=== PATIENT | female | born 1975 | race Caucasian/White ===

== ENCOUNTER 2021-04-26 14:31 | Emergency (ER) | payer MEDICAID ==
[~2021-04-26] VITALS: Ht 152.4 cm; Wt 104.3 kg
[~2021-04-26 14:31] MED LIST: ACET-789 PO; BCP PO; BUSP10TA95 PO; BUSP5TAB59 PO; CIPR-225 PO; DICL75TA2 PO; DOCU100C37 PO; HCT25T PO; HYDR-34 PO; HYDR-3729 PO; IBUP-1773 PO; LISI10TA25 PO; LISI1TAB6 PO; MEDR5TAB4 PO; MELO-195 PO; MELO7.5T46 PO; MUPI22OI2 TOP; OMEP20CA6 PO; PHEN-640 PO; RABE20TA PO; RT-ALBUINH IH; SERT100T PO; SULF1TAB35 PO; TRM50T PO
[2021-04-26 15:24] LABS: BASOPHILS # (AUTO) 0.1 10^3/uL (0.0-0.1); BASOPHILS % (AUTO) 1 % (0-10); EOSINOPHILS # (AUTO) 0.6 10^3/uL (0.0-0.3); EOSINOPHILS % (AUTO) 6 % (0-10); HEMATOCRIT 42 % (35-52); HEMOGLOBIN 13.9 g/dL (11.5-16.0); LYMPHOCYTES # (AUTO) 3.7 10^3/uL (1.0-4.0); LYMPHOCYTES % (AUTO) 39 % (12-44); MEAN CORPUSCULAR HEMOGLOBIN 31 pg (25-34); MEAN CORPUSCULAR HGB CONC 33 g/dL (32-36); MEAN CORPUSCULAR VOLUME 95 fL (80-99); MEAN PLATELET VOLUME 11.7 fL (9.0-12.2); MONOCYTES # (AUTO) 0.8 10^3/uL (0.0-1.0); MONOCYTES % (AUTO) 8 % (0-12); NEUTROPHILS # (AUTO) 4.3 10^3/uL (1.8-7.8); NEUTROPHILS % (AUTO) 45 % (42-75); PLATELET COUNT 206 10^3/uL (130-400); WHITE BLOOD COUNT 9.5 10^3/uL (4.3-11.0)
[2021-04-26 15:27] LABS: CALCIUM 9.8 MG/DL (8.5-10.1)
[2021-04-26 15:28] LABS: TOTAL PROTEIN 7.9 GM/DL (6.4-8.2)
[2021-04-26 15:30] LABS: BILIRUBIN,TOTAL 0.5 MG/DL (0.1-1.0)
[2021-04-26] MEDS ORDERED: ONDANSETRON 4 MG/2 ML (SDV) Z0FRAN IVP ONE (15:30)
[2021-04-26] MEDS ORDERED: LACTATED RINGERS 1,000 ML IV ONE ×2 (15:30→16:30)
[2021-04-26] MEDS ORDERED: NS IV 1000 ML 1,000 ML IV SCH (15:30)
[2021-04-26 15:32] LABS: CREATININE SERUM 1.35 MG/DL (0.60-1.30)
[2021-04-26 15:35] LABS: MAGNESIUM 2.4 MG/DL (1.6-2.4)
[2021-04-26] MEDS ORDERED: ONDA4TAB11 SL (16:29)
[2021-04-26] MEDS ORDERED: HYOS0.1283 SL (16:29)
--- NOTE | 2021-04-26 16:29 | ED GI ---
General Chief Complaint: Abdominal/GI Problems Stated Complaint: HEADACHE V/D DRY MOUTH Nursing Triage Note: PT ARRIVED BY PRIVATE VEHICLE WITH WITH CHEIF COMPLAINT OF NAUSEA, DIARRHEA, HEADACHE AND DRY MOUTH. PT IS ALERT, ORIENTED X 4 AND AMBULATORY. PT STATED ONSET WAS ONE WEEK AGO AND THOUGHT IT WAS A STOMACH BUG, OR FOOD POISONING FROM FISH, BUT IT HAS BEEN 1 WEEK AND 1 DAY SINCE ONSET. PT IS NOT GETTING BETTER. COVID SWAB WAS DONE, VITALS AND IV WITH BLOOD DRAW. PT IS ALLERGIC TO LATEX AND TRAMADOL. PT DENIES SMOKING, ALCOHOL OR DRUG USE. REPORT WAS GIVEN TO PROVIDER. Source of Information: Patient Exam Limitations: No Limitations History of Present Illness Date Seen by Provider: Apr 26, 2021 Time Seen by Provider: 15:16 Initial Comments History as above. Patient also complains of some crampy abdominal pain. She feels dry. She is afebrile. Allergies and Home Medications Allergies Coded Allergies: tramadol (Verified Allergy, Unknown, HIVES AND VOMITING, 07/25/15) Home Medications Buspirone HCl 10 Mg Tablet, 10 MG PO TID, (Reported) Hydrochlorothiazide 25 Mg Tab, 25 MG PO DAILY, (Reported) Hydrocodone/Acetaminophen 1 Each Tablet, 1 EACH PO Q4H Prescribed by: RON BETANCOURT on 07/07/16 1254 Hyoscyamine Sulfate 0.125 Mg Tab.subl, 0.125 MG SL Q4H PRN for CRAMPS Prescribed by: TEVIN RINCON on 04/26/21 1629 Ibuprofen 600 Mg Tablet, 600 MG PO Q6H PRN for PAIN Prescribed by: RON BETANCOURT on 07/07/16 1254 Lisinopril 10 Mg Tablet, 10 MG PO DAILY, (Reported) Medroxyprogesterone Acetate 5 Mg Tablet, 5 MG PO DAILY Prescribed by: RON BETANCOURT on 07/07/16 1254 Omeprazole 20 Mg Capsule.dr, 20 MG PO DAILY, (Reported) Ondansetron 4 Mg Tab.rapdis, 4 MG SL Q4H PRN for NAUSEA/VOMITING Prescribed by: TEVIN RINCON on 04/26/21 1629 Sertraline HCl 100 Mg Tablet, 100 MG PO BID, (Reported) Patient Home Medication List Home Medication List Reviewed: Yes Review of Systems Review of Systems Constitutional: no symptoms reported EENTM: No Symptoms Reported Respiratory: No Symptoms Reported Cardiovascular: No Symptoms Reported Gastrointestinal: See HPI Genitourinary: No Symptoms Reported Musculoskeletal: no symptoms reported Skin: no symptoms reported Psychiatric/Neurological: See HPI Endocrine: No Symptoms Reported Hematologic/Lymphatic: No Symptoms Reported Past Wyuqlmm-Wgawjd-Hhqozd Hx Patient Social History Tobacco Use?: No Substance use?: No Alcohol Use?: No Pt feels they are or have been: No Immunizations Up To Date Tetanus Booster (TDap): Unknown Past Medical History Surgeries: Yes Section, Gallbladder, Hysterectomy Respiratory: Yes Asthma Cardiac: Yes Hypertension Reproductive Disorders: Yes (PELVIC PAIN) Female Reproductive Disorders: Ovarian Cyst [employer] History: Hysterectomy, Tubal Ligation Sexually Transmitted Disease: No HIV/AIDS: No Genitourinary: Yes UTI-Chronic Gastrointestinal: Yes Gastroesophageal Reflux Musculoskeletal: Yes Arthritis, Chronic Back Pain Diabetes, Non-Insulin dep Loss of Vision: Bilateral Hearing Impairment: Denies Psychosocial: Yes Anxiety Adverse Reaction/Blood Tranf: No Family Medical History Alcoholism 19 FATHER Cataracts 19 MOTHER Diabetes mellitus 19 FATHER Drug abuse G8 SISTER FH: breast cancer 19 MOTHER Hypertension 19 FATHER 19 MOTHER Cancer, Hypertension Physical Exam Vital Signs Vital Signs - First Documented 04/26/21 15:13 Temp 36.1 Pulse 81 Resp 16 B/P (MAP) 125/81 (96) Pulse Ox 97 O2 Delivery Room Air Capillary Refill : Less Than 3 Seconds Height/Weight/BMI Height: 5'2.00" Weight: 189lbs. 0.0oz. 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, no motor/sensory deficits, alert, normal mood/affect, oriented x 3 Skin: normal color, warm/dry Progress/Results/Core Measures Results/Orders Lab Results Laboratory Tests Test 04/26/21 14:55 Range/Units White Blood Count 9.5 4.3-11.0 10^3/uL Red Blood Count 4.43 3.80-5.11 10^6/uL Hemoglobin 13.9 11.5-16.0 g/dL Hematocrit 42 35-52 % Mean Corpuscular Volume 95 80-99 fL Mean Corpuscular Hemoglobin 31 25-34 pg Mean Corpuscular Hemoglobin Concent 33 32-36 g/dL Red Cell Distribution Width 12.7 10.0-14.5 % Platelet Count 206 130-400 10^3/uL Mean Platelet Volume 11.7 9.0-12.2 fL Immature Granulocyte % (Auto) 0 % Neutrophils (%) (Auto) 45 42-75 % Lymphocytes (%) (Auto) 39 12-44 % Monocytes (%) (Auto) 8 0-12 % Eosinophils (%) (Auto) 6 0-10 % Basophils (%) (Auto) 1 0-10 % Neutrophils # (Auto) 4.3 1.8-7.8 10^3/uL Lymphocytes # (Auto) 3.7 1.0-4.0 10^3/uL Monocytes # (Auto) 0.8 0.0-1.0 10^3/uL Eosinophils # (Auto) 0.6 H 0.0-0.3 10^3/uL Basophils # (Auto) 0.1 0.0-0.1 10^3/uL Immature Granulocyte # (Auto) 0.0 0.0-0.1 10^3/uL Sodium Level 141 135-145 MMOL/L Potassium Level 4.0 3.6-5.0 MMOL/L Chloride Level 109 H 98-107 MMOL/L Carbon Dioxide Level 20 L 21-32 MMOL/L Anion Gap 12 5-14 MMOL/L Blood Urea Nitrogen 12 7-18 MG/DL Creatinine 1.35 H 0.60-1.30 MG/DL Estimat Glomerular Filtration Rate 42 BUN/Creatinine Ratio 9 Glucose Level 113 H 70-105 MG/DL Calcium Level 9.8 8.5-10.1 MG/DL Corrected Calcium 9.8 8.5-10.1 MG/DL Magnesium Level 2.4 1.6-2.4 MG/DL Total Bilirubin 0.5 0.1-1.0 MG/DL Aspartate Amino Transf (AST/SGOT) 35 H 5-34 U/L Alanine Aminotransferase (ALT/SGPT) 56 H 0-55 U/L Alkaline Phosphatase 95 40-136 U/L Total Protein 7.9 6.4-8.2 GM/DL Albumin 4.0 3.2-4.5 GM/DL Influenza Type A (RT-PCR) Not Detected Not Detecte Influenza Type B (RT-PCR) Not Detected Not Detecte SARS-CoV-2 RNA (RT-PCR) Not Detected Not Detecte My Orders Orders - TEVIN PADILLA MD Iv 1000 Ml (Sodium Chloride 0.9%) (04/26/21 15:30) Cbc With Automated Diff (04/26/21 15:16) Comprehensive Metabolic Panel (04/26/21 15:16) Magnesium (04/26/21 15:16) Ed Iv/Invasive Line Start (04/26/21 15:16) Covid 19 Inhouse Test (04/26/21 15:16) Influenza A And B By Pcr (04/26/21 15:16) Ondansetron Injection (Zofran Injectio (04/26/21 15:30) Lactated Ringers (Lr 1000 Ml Iv Solution (04/26/21 15:30) Lactated Ringers (Lr 1000 Ml Iv Solution (04/26/21 16:30) Hyoscyamine Sl Tablet (Levsin Sl Tablet) (04/26/21 16:30) Medications Given in ED Vital Signs/I&O 04/26/21 04/26/21 15:13 18:12 Temp 36.1 Pulse 81 75 Resp 16 18 B/P (MAP) 125/81 (96) 143/91 Pulse Ox 97 98 O2 Delivery Room Air Room Air Blood Pressure Mean: 96 Progress Progress Note : Progress Note This is a mild bump in creatinine, labs appeared unremarkable. Patient was hydrated with 2 L of IV fluid. She is additionally treated with Zofran and Levsin with improvement in her symptoms. Prescriptions were provided. Departure Impression Primary Impression: Nausea vomiting and diarrhea Additional Impressions: Abdominal cramping Renal insufficiency Disposition: 01 HOME, SELF-CARE Condition: Improved Departure-Patient Inst. Decision time for Depature: 16:27 Referrals: [facility] (PCP/Family) Primary Care Physician Patient Instructions: Viral Gastroenteritis, Adult (DC) Add. Discharge Instructions: Drink plenty of clear liquids. Gradually advance your diet with small quantities of bland food as tolerated. Avoid milk products or fatty or greasy foods until your symptoms have resolved for couple of days. Use the Zofran (ondansetron) as prescribed for nausea vomiting. Use the Levsin (hyoscyamine) as prescribed for diarrhea and cramping. Call with questions or concerns. Return to the ER if you have worsening symptoms. All discharge instructions reviewed with patient and/or family. Voiced understanding. Scripts Ondansetron (Ondansetron Odt) 4 Mg Tab.rapdis 4 MG SL Q4H PRN for NAUSEA/VOMITING, #10 TAB Prov: TEVIN PADILLA MD 04/26/21 Hyoscyamine Sulfate (Levsin-Sl) 0.125 Mg Tab.subl 0.125 MG SL Q4H PRN for CRAMPS, #10 TAB 0 Refills Prov: TEVIN PADILLA MD 04/26/21 Copy Copies To 1: PADMA COOK JOSHUA T MD Apr 26, 2021 16:29
[2021-04-26] MEDS ORDERED: HYOSCYAMINE 0.125 MG (LEVSIN) TAB SL ONE (16:30)
[2021-04-26 18:12] VITALS: BP 143/91
== END 2021-04-26 18:12 | disposition home or self-care (01) ==
LOC: EDUNIT# 14:31 → ER 14:33
DX: R11.10 Vomiting, unspecified (principal); R19.7 Diarrhea, unspecified; R10.9 Unspecified abdominal pain; N28.9 Disorder of kidney and ureter, unspecified; I10 Essential (primary) hypertension; J45.909 Unspecified asthma, uncomplicated; K21.9 Gastro-esophageal reflux disease without esophagitis; G89.29 Other chronic pain; M54.9 Dorsalgia, unspecified; E11.9 Type 2 diabetes mellitus without complications; F41.9 Anxiety disorder, unspecified; Z20.822 Contact with and (suspected) exposure to COVID-19; Z79.899 Other long term (current) drug therapy; Z79.891 Long term (current) use of opiate analgesic
CPT/HCPCS: 36415; 80053; 83735; 85025; 87636

== ENCOUNTER 2022-03-03 11:58 | Emergency (ER) | payer MEDICAID ==
[~2022-03-03] VITALS: Ht 152 cm; Wt 104.0 kg
[~2022-03-03 11:58] MED LIST changes: +HYOS0.1283 SL; +ONDA4TAB11 SL; -SULF1TAB35 PO; +SULF1TAB38 PO
[2022-03-03] MEDS ORDERED: fentaNYL INJ 100 MCG/2 ML AMP IVP STA (12:14)
--- NOTE | 2022-03-03 12:18 | ED Abdominal Pain ---
General Stated Complaint: RLQ PAIN Source of Information: Patient Exam Limitations: No Limitations History of Present Illness Date Seen by Provider: March 03, 2022 Time Seen by Provider: 12:16 Initial Comments Patient is a 46-year-old female who presents ED with right lower quadrant abdominal pain. Sharp stabbing pain for the past month. This pain is constant. Rates pain 9 out of 10. Radiation to her upper abdomen and right lower back. She states she is seeing a provider at the walk-in clinic as well as an ER with concern for kidney stone. Was given pain medication without much improvement. Denies of any dark urine, pain with urination, vaginal bleeding. History of total hysterectomy. Denies fever, nausea, vomiting, diarrhea, chest pain, shortness of breath, cough, headache, dizziness. Allergies and Home Medications Allergies Coded Allergies: tramadol (Verified Allergy, Unknown, HIVES AND VOMITING, 07/25/15) Patient Home Medication List Home Medication List Reviewed: Yes Buspirone HCl (Buspirone HCl) 10 Mg Tablet, 10 MG PO TID, (Reported) Entered as Reported by: PATT HAMPTON on 07/06/16 0955 Hydrochlorothiazide (Hctz) 25 Mg Tab, 25 MG PO DAILY, (Reported) Entered as Reported by: SALOMÓN BRIDGES on 11/08/12 1902 Hydrocodone/Acetaminophen (Lortab 5-325 mg Tablet) 1 Each Tablet, 1 EACH PO Q4H Prescribed by: RON BETANCOURT on 07/07/16 1254 Hydrocodone/Acetaminophen (Hydrocodone-Acetamin 5-325 mg) 5 Mg-325 Mg Tablet, 1 TAB PO Q4H PRN for PAIN-MODERATE (5-7) Prescribed by: RICCO CORTES on 03/03/22 1416 Hyoscyamine Sulfate (Levsin-Sl) 0.125 Mg Tab.subl, 0.125 MG SL Q4H PRN for CRAMPS Prescribed by: TEVIN RINCON on 04/26/21 1629 Ibuprofen (Ibuprofen) 600 Mg Tablet, 600 MG PO Q6H PRN for PAIN Prescribed by: RON BETANCOURT on 07/07/16 1254 Lisinopril (Lisinopril) 10 Mg Tablet, 10 MG PO DAILY, (Reported) Entered as Reported by: BORA BAER on 07/25/15 1237 Medroxyprogesterone Acetate (Medroxyprogesterone Acetate) 5 Mg Tablet, 5 MG PO DAILY Prescribed by: RON BETANCOURT on 07/07/16 1254 Omeprazole (Prilosec) 20 Mg Capsule.dr, 20 MG PO DAILY, (Reported) Entered as Reported by: JONATHAN MENJIVAR on 07/30/15 0840 Ondansetron (Ondansetron Odt) 4 Mg Tab.rapdis, 4 MG SL Q4H PRN for NAUSEA/VOM ITING Prescribed by: TEVIN RINCON on 04/26/21 1629 Sertraline HCl (Zoloft) 100 Mg Tablet, 100 MG PO BID, (Reported) Entered as Reported by: BORA BAER on 10/03/15 1329 Review of Systems Review of Systems Constitutional: No chills, No diaphoresis, No malaise, No weakness EENTM: No Double Vision, No Eye Pain Respiratory: Denies Cough, Denies Orthopnea, Denies Shortness of Air Cardiovascular: Denies Chest Pain, Denies Edema Gastrointestinal: Abdominal Pain; Denies Constipated, Denies Diarrhea, Denies Nausea Genitourinary: Denies Burning, Denies Discharge Musculoskeletal: No back pain, No joint pain, No joint swelling, No muscle pain Skin: No change in color, No change in hair/nails All Other Systems Reviewed Negative Unless Noted: Yes Past Cikdziw-Kntocr-Bdaurs Hx Immunizations Up To Date Tetanus Booster (TDap): Unknown Past Medical History Surgeries: Yes Section, Gallbladder, Hysterectomy Respiratory: Yes Asthma Cardiac: Yes Hypertension Reproductive Disorders: Yes (PELVIC PAIN) Female Reproductive Disorders: Ovarian Cyst [employer] History: Hysterectomy, Tubal Ligation Sexually Transmitted Disease: No HIV/AIDS: No Genitourinary: Yes UTI-Chronic Gastrointestinal: Yes Gastroesophageal Reflux Musculoskeletal: Yes Arthritis, Chronic Back Pain Diabetes, Non-Insulin dep Loss of Vision: Bilateral Hearing Impairment: Denies Psychosocial: Yes Anxiety Adverse Reaction/Blood Tranf: No Family Medical History Alcoholism 19 FATHER Cataracts 19 MOTHER Diabetes mellitus 19 FATHER Drug abuse G8 SISTER FH: breast cancer 19 MOTHER Hypertension 19 FATHER 19 MOTHER Cancer, Hypertension Physical Exam Vital Signs Vital Signs - First Documented 03/03/22 12:11 Temp 36.3 Pulse 115 Resp 16 B/P (MAP) 107/79 (88) Pulse Ox 97 O2 Delivery Room Air Capillary Refill : Height/Weight/BMI Height: 5'2.00" Weight: 189lbs. 0.0oz. 85.694351xx; 44.00 BMI Method:Stated General Appearance: WD/WN, no apparent distress HEENT: PERRL/EOMI, normal ENT inspection, TMs normal, pharynx normal Neck: non-tender, full range of motion, supple Respiratory: chest non-tender, lungs clear, normal breath sounds, no respiratory distress Cardiovascular: regular rate, rhythm, no edema, no gallop, no JVD Gastrointestinal: normal bowel sounds, soft, no organomegaly, tenderness (Right lower quadrant tenderness, right lower back tenderness. Normal bowel sounds throughout. 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, no motor/sensory deficits, alert, normal mood/affect, oriented x 3 Progress/Results/Core Measures Results/Orders Lab Results Laboratory Tests Test 03/03/22 12:29 03/03/22 12:32 Range/Units White Blood Count 9.8 4.3-11.0 10^3/uL Red Blood Count 4.39 3.80-5.11 10^6/uL Hemoglobin 13.4 11.5-16.0 g/dL Hematocrit 40 35-52 % Mean Corpuscular Volume 92 80-99 fL Mean Corpuscular Hemoglobin 31 25-34 pg Mean Corpuscular Hemoglobin Concent 33 32-36 g/dL Red Cell Distribution Width 12.1 10.0-14.5 % Platelet Count 225 130-400 10^3/uL Mean Platelet Volume 10.2 9.0-12.2 fL Immature Granulocyte % (Auto) 0 % Neutrophils (%) (Auto) 52 42-75 % Lymphocytes (%) (Auto) 35 12-44 % Monocytes (%) (Auto) 8 0-12 % Eosinophils (%) (Auto) 4 0-10 % Basophils (%) (Auto) 1 0-10 % Neutrophils # (Auto) 5.0 1.8-7.8 10^3/uL Lymphocytes # (Auto) 3.5 1.0-4.0 10^3/uL Monocytes # (Auto) 0.8 0.0-1.0 10^3/uL Eosinophils # (Auto) 0.4 H 0.0-0.3 10^3/uL Basophils # (Auto) 0.1 0.0-0.1 10^3/uL Immature Granulocyte # (Auto) 0.0 0.0-0.1 10^3/uL Sodium Level 139 135-145 MMOL/L Potassium Level 3.7 3.6-5.0 MMOL/L Chloride Level 107 98-107 MMOL/L Carbon Dioxide Level 22 21-32 MMOL/L Anion Gap 10 5-14 MMOL/L Blood Urea Nitrogen 20 H 7-18 MG/DL Creatinine 1.04 0.60-1.30 MG/DL Estimat Glomerular Filtration Rate 67 BUN/Creatinine Ratio 19 Glucose Level 148 H 70-105 MG/DL Calcium Level 9.3 8.5-10.1 MG/DL Corrected Calcium 9.4 8.5-10.1 MG/DL Total Bilirubin 0.4 0.1-1.0 MG/DL Aspartate Amino Transf (AST/SGOT) 23 5-34 U/L Alanine Aminotransferase (ALT/SGPT) 35 0-55 U/L Alkaline Phosphatase 88 40-136 U/L Total Protein 7.2 6.4-8.2 GM/DL Albumin 3.9 3.2-4.5 GM/DL Lipase 10 8-78 U/L Urine Color YELLOW Urine Clarity CLEAR Urine pH 6.0 5-9 Urine Specific [place] 1.025 H 1.016-1.022 Urine Protein NEGATIVE NEGATIVE Urine Glucose (UA) NEGATIVE NEGATIVE Urine Ketones NEGATIVE NEGATIVE Urine Nitrite NEGATIVE NEGATIVE Urine Bilirubin NEGATIVE NEGATIVE Urine Urobilinogen 0.2 < = 1.0 MG/DL Urine Leukocyte Esterase TRACE H NEGATIVE Urine RBC (Auto) TRACE-I H NEGATIVE Urine RBC NONE /HPF Urine WBC RARE /HPF Urine Squamous Epithelial Cells 5-10 /HPF Urine Crystals NONE /LPF Urine Bacteria FEW H /HPF Urine Casts NONE /LPF Urine Mucus NEGATIVE /LPF Urine Culture Indicated NO Urine Test NEGATIVE NEGATIVE My Orders Orders - FLORENCIO PIEDRA Ua Culture If Indicated (03/03/22 11:59) Hcg,Qualitative Urine (03/03/22 11:59) Cbc With Automated Diff (03/03/22 12:14) Comprehensive Metabolic Panel (03/03/22 12:14) Lipase (03/03/22 12:14) Ct Abdomen/Pelvis W (03/03/22 12:14) Fentanyl Inj (Sublimaze Injection) (03/03/22 12:14) Iohexol Injection (Omnipaque 350 Mg/Ml 1 (03/03/22 13:15) Received Contrast (Hold Metformin- Contr (03/03/22 13:15) Sodium Chloride Flush (Catheter Flush Sy (03/03/22 13:15) Ns (Ivpb) (Sodium Chloride 0.9% Ivpb Bag (03/03/22 13:15) Medications Given in ED Current Medications Medications Dose Ordered Sig/Ciro Route Start Time Stop Time Status Last Admin Dose Admin Iohexol 100 ml ONCE ONCE IV 03/03/22 13:15 03/03/22 13:16 DC 03/03/22 13:27 100 ML Sodium Chloride 10 ml NEEDED PRN IV 03/03/22 13:15 03/03/22 14:25 DC 03/03/22 13:27 10 ML Sodium Chloride 100 ml ONCE ONCE IV 03/03/22 13:15 03/03/22 13:16 DC 03/03/22 13:27 80 ML Vital Signs/I&O 03/03/22 03/03/22 12:11 14:25 Temp 36.3 Pulse 115 88 Resp 16 16 B/P (MAP) 107/79 (88) 123/90 Pulse Ox 97 97 O2 Delivery Room Air Room Air Departure Communication (PCP) Patient with ongoing constant pain for the past month. Vital signs stable. Reports pain 9 out of 10. Was given a dose of fentanyl with improvement of pain. No improvement Tylenol ibuprofen at home. Urinalysis without evidence infection. History total hysterectomy. No vaginal bleeding. No history of appendectomy, cholecystectomy. No severe pain with eating or with movement. This is a constant pain. Radiating to right flank. Patient lab work was otherwise unremarkable. Normal liver enzymes, pancreatic is enzymes, white blood count, kidney function. CT Abdo pelvis shows cholelithiasis without evidence of cholecystitis. She has no right upper quadrant pain. Negative appendix. Possible liver cyst versus hemangioma. Recommend outpatient MRI for further evaluation. No evidence of surgical abdomen at this time. Recommend outpatient follow-up for this continuous pain for the past month. Did provide surgical follow-up if surgical indication. Likely would benefit follow-up with PCP for further evaluation. Return precautions were discussed with patient. Will be discharged few days worth of pain medication as needed. Discussed laxatives with pain medication. Impression Primary Impression: Abdominal pain Disposition: HOME, SELF-CARE Condition: Stable Departure-Patient Inst. Decision time for Depature: 14:15 Referrals: CLEMENCIA LARSON LUKE M DO (PCP) Primary Care Physician Patient Instructions: Abdominal Pain, Adult ED Scripts Hydrocodone/Acetaminophen (Hydrocodone-Acetamin 5-325 mg) 5 Mg-325 Mg Tablet 1 TAB PO Q4H PRN for PAIN-MODERATE (5-7), #12 TAB Prov: FLORENCIO PIEDRA 03/03/22 FLORENCIO PIEDRA March 03, 2022 12:18
[2022-03-03 12:39] LABS: BASOPHILS # (AUTO) 0.1 10^3/uL (0.0-0.1); BASOPHILS % (AUTO) 1 % (0-10); EOSINOPHILS # (AUTO) 0.4 10^3/uL (0.0-0.3); EOSINOPHILS % (AUTO) 4 % (0-10); HEMATOCRIT 40 % (35-52); HEMOGLOBIN 13.4 g/dL (11.5-16.0); LYMPHOCYTES # (AUTO) 3.5 10^3/uL (1.0-4.0); LYMPHOCYTES % (AUTO) 35 % (12-44); MEAN CORPUSCULAR HEMOGLOBIN 31 pg (25-34); MEAN CORPUSCULAR HGB CONC 33 g/dL (32-36); MEAN CORPUSCULAR VOLUME 92 fL (80-99); MEAN PLATELET VOLUME 10.2 fL (9.0-12.2); MONOCYTES # (AUTO) 0.8 10^3/uL (0.0-1.0); MONOCYTES % (AUTO) 8 % (0-12); NEUTROPHILS % (AUTO) 52 % (42-75); PLATELET COUNT 225 10^3/uL (130-400); WHITE BLOOD COUNT 9.8 10^3/uL (4.3-11.0)
[2022-03-03 12:40] LABS: BILIRUBIN,URINE NEGATIVE (NEGATIVE); CLARITY,URINE CLEAR; COLOR,URINE YELLOW; GLUCOSE, URINE (UA) NEGATIVE (NEGATIVE); KETONES,URINE NEGATIVE (NEGATIVE); LEUKOCYTE ESTERASE ,URINE TRACE (NEGATIVE); NITRITE,URINE NEGATIVE (NEGATIVE); PROTEIN,URINE NEGATIVE (NEGATIVE)
[2022-03-03 12:46] LABS: WBC,URINE RARE /HPF
[2022-03-03 12:47] LABS: BACTERIA,URINE FEW /HPF
[2022-03-03 12:47] LABS: ALBUMIN 3.9 GM/DL (3.2-4.5); POTASSIUM 3.7 MMOL/L (3.6-5.0)
[2022-03-03 12:48] LABS: CALCIUM 9.3 MG/DL (8.5-10.1)
[2022-03-03 12:49] LABS: TOTAL PROTEIN 7.2 GM/DL (6.4-8.2)
[2022-03-03 12:51] LABS: BILIRUBIN,TOTAL 0.4 MG/DL (0.1-1.0)
[2022-03-03 12:53] LABS: CREATININE SERUM 1.04 MG/DL (0.60-1.30)
[2022-03-03] MEDS ORDERED: IOHEXOL 350 MG/ML 100 ML (OMNIPAQUE 350) VIAL IV ONE (13:15)
[2022-03-03] MEDS ORDERED: HOLD METFORMIN - RECEIVED CONTRAST 20 ML VIAL IV SCH (13:15)
[2022-03-03] MEDS ORDERED: CATHETER FLUSH 10 ML SYR IV PRN (13:15)
[2022-03-03] MEDS ORDERED: NS 100 ML (IVPB) BAG IV ONE (13:15)
--- NOTE | 2022-03-03 13:53 | Diagnostic Imaging Report ---
EXAMINATION: CT abdomen and pelvis with intravenous contrast. TECHNIQUE: Multiple contiguous axial images were obtained through the abdomen and pelvis after the uneventful administration of intravenous contrast. All CT scans use one or more of the following dose optimizing techniques: automated exposure control, MA and/or KvP adjustment based on patient size and exam type or iterative reconstruction. HISTORY: Right lower abdominal pain. COMPARISON: None available. FINDINGS: The heart is unremarkable. The included lung bases are clear. There is hepatic steatosis. Small focus of enhancement is seen in the right hepatic lobe measuring 1.2 cm. An area of decreased attenuation is seen in the right hepatic lobe measuring 3.3 cm. The portal vein is patent. Cholelithiasis is visualized without CT evidence of acute cholecystitis. Simple cortical cysts are seen in the kidneys. No evidence of hydronephrosis or solid renal mass. No renal calculi. The urinary bladder is nondistended. The spleen, pancreas, and adrenal glands have a normal appearance. There is no pathologically enlarged mesenteric or retroperitoneal adenopathy. The bowel loops are nondilated. The appendix is visualized in the right lower quadrant and has a normal appearance. There is no free fluid or free air. No acute osseous abnormalities. There is no free air, loculated collection, or adenopathy in the pelvis. IMPRESSION: 1. Cholelithiasis without CT evidence of acute cholecystitis. 2. Hepatic steatosis. An area of enhancement is visualized in the right hepatic lobe measuring 1.2 cm with a separate area of decreased attenuation in the right hepatic lobe measuring 3.3 cm. These findings may relate to hemangiomas and/or cysts. Consider liver protocol CT or MRI to further characterize on an outpatient basis. Dictated by: Dictated on workstation # [id number]
[2022-03-03] MEDS ORDERED: ACHD5005 PO (14:16)
[2022-03-03 14:25] VITALS: BP 123/90
== END 2022-03-03 14:25 | disposition home or self-care (01) ==
LOC: EDUNIT# 11:58 → ER 12:00
DX: R10.31 Right lower quadrant pain (principal); M54.50 Low back pain, unspecified; Z90.710 Acquired absence of both cervix and uterus; Z32.02 Encounter for pregnancy test, result negative
CPT/HCPCS: 36415; 74177; 80053; 81000; 83690; 84703; 85025

== ENCOUNTER → 2022-03-24 | Outpatient (CLI) | payer MEDICAID ==
[~2022-03-24] MED LIST changes: +ACHD5005 PO
--- NOTE | 2022-03-24 09:37 | Diagnostic Imaging Report ---
EXAMINATION: US Abdomen limited. TECHNIQUE: Multiple Real-time grayscale images were obtained over the right upper quadrant in various projections. REASON FOR EXAM: Epigastric pain. COMPARISON: 03/03/2022. FINDINGS: The liver is prominent and demonstrates increased echogenicity throughout. Hypoechoic lesions are seen in the right lobe with the largest measuring 4.1 x 2.9 x 2.5 cm. No intrahepatic biliary dilatation is present. The common bile duct is obscured. The main portal vein is hepatopedal. No ascites is seen in the upper abdomen. Gallstones are visualized within the gallbladder lumen. The gallbladder wall measures 0.3 cm in thickness. No pericholecystic fluid is seen. Sonographic Stone's sign is negative. The visualized portion of the head of the pancreas are within normal limits. The body and tail of the pancreas are not well visualized due to overlying bowel gas. The visualized portions of the IVC and aorta appear normal. The right kidney measures approximately 9.1 cm in length and has a normal appearance. IMPRESSION: 1. Cholelithiasis without sonographic evidence of acute cholecystitis. 2. Hepatomegaly with hepatic steatosis. Scattered areas of decreased echogenicity are seen in the right hepatic lobe which may represent areas of focal fatty infiltration or benign hemangiomas. Dictated by: Dictated on workstation # [id number]
== END ==
LOC: RAD 08:00
PROVIDERS: ATTEND Surgery
DX: K80.20 Calculus of gallbladder without cholecystitis without obstruction (principal); K76.0 Fatty (change of) liver, not elsewhere classified
CPT/HCPCS: 76705

== ENCOUNTER → 2022-03-27 | Outpatient (CLI) | payer MEDICAID ==
[~2022-03-27] MED LIST changes: +CATHETER FLUSH 10 ML SYR IVP PRN
--- NOTE | 2022-03-27 13:09 | Diagnostic Imaging Report ---
INDICATION: Epigastric pain EXAMINATION:: HIDA scan 03/27/2022 FINDINGS: After uneventful administration of 5.11 mCi of technetium 99m Choletec intravenously, subsequent imaging was performed with prompt homogeneous uptake seen throughout the liver. The gallbladder and small bowel seen within less than 60 minutes. At 50 minutes Ensure administered orally with continued imaging performed. Ejection fraction is calculated at 41.5%. IMPRESSION: 1. No obstructive process. 2. Normal ejection fraction of 41.5% Dictated by: Dictated on workstation # [id number]
== END ==
LOC: CARD 09:44
PROVIDERS: ATTEND Surgery
DX: R10.13 Epigastric pain (principal)
CPT/HCPCS: 78227

== ENCOUNTER 2022-04-08 05:53 | Outpatient (CLI) | payer MEDICAID ==
[~2022-04-08] VITALS: Ht 157.5 cm; Wt 102.3 kg
[~2022-04-08 05:53] MED LIST changes: -CATHETER FLUSH 10 ML SYR IVP PRN
[2022-04-09] MEDS ORDERED: HYDR-700 PO (13:14)
[2022-04-09] MEDS ORDERED: RIME75TA PO (13:14)
[2022-04-09] MEDS ORDERED: VENL37.52 PO (13:14)
[2022-04-09] MEDS ORDERED: METF-478 PO (13:14)
[2022-04-09] MEDS ORDERED: OXYB10TA29 PO (13:14)
[2022-04-09] MEDS ORDERED: QUET200T4 PO (13:14)
[2022-04-09] MEDS ORDERED: LISI10TA25 PO (13:14)
[2022-04-09] MEDS ORDERED: CETI10CA PO (13:14)
== END 2022-04-09 14:29 | disposition home or self-care (01) ==
LOC: PREOP 05:53
PROVIDERS: ATTEND Surgery
DX: Z01.818 Encounter for other preprocedural examination (principal)

== ENCOUNTER 2022-04-15 07:51 | Day surgery (SDC) | payer MEDICAID ==
[2022-04-15] VITALS (13 sets, daily range): BP systolic 102–140; BP diastolic 56–101
[~2022-04-15] VITALS: Ht 157 cm; Wt 102.0 kg
[~2022-04-15 07:51] MED LIST changes: +CETI10CA PO; +HYDR-700 PO; +METF-478 PO; +OXYB10TA29 PO; +QUET200T4 PO; +RIME75TA PO; +VENL37.52 PO
[2022-04-15] MEDS ORDERED: ceFAZolin 2 GM IV Premixed 50 ML IV ONE (08:30)
[2022-04-15] MEDS ORDERED: LACTATED RINGERS 1,000 ML IV PRN (09:00)
--- NOTE | 2022-04-15 09:47 | Progress Note-Pre Operative ---
Pre-Operative Progress Note H&P Reviewed The H&P was reviewed, patient examined and no changes noted. Date Seen by Provider: Apr 15, 2022 Time Seen by Provider: 09:47 Date H&P Reviewed: Apr 15, 2022 Time H&P Reviewed: 09:47 Pre-Operative Diagnosis: cholelithiasis CLEMENCIA LARSON DO Apr 15, 2022 09:47
[2022-04-15] MEDS ORDERED: MIDAZOLAM 2 MG/2 ML (VERSED) VIAL ONE (09:53)
[2022-04-15] MEDS ORDERED: LIDOCAINE PF 2% 5 ML (XYLOCAINE) VIAL ONE (09:53)
[2022-04-15] MEDS ORDERED: ONDANSETRON 4 MG/2 ML (SDV) Z0FRAN ONE ×3 (09:53→12:41)
[2022-04-15] MEDS ORDERED: fentaNYL INJ 100 MCG/2 ML AMP ONE (09:53)
[2022-04-15] MEDS ORDERED: proPOfol 200 MG/20 ML (DIPRIVAN) VIAL IV ONE (09:53)
[2022-04-15] MEDS ORDERED: SEVOFLURANE (ULTANE) 15 ML INHAL SOLN ONE ×2 (09:53→11:29)
[2022-04-15] MEDS ORDERED: FAMOTIDINE 20MG/2ML IV (PEPCID) ONE (10:03)
[2022-04-15] MEDS ORDERED: LIDOCAINE/EPI 2% 1:200,00 (XYLOCAINE) 20 ML VIAL ONE (10:11)
[2022-04-15] MEDS ORDERED: FAMOTIDINE 20MG/2ML IV (PEPCID) IV ONE ×2 (10:15)
[2022-04-15] MEDS ORDERED: ONDANSETRON 4 MG/2 ML (SDV) Z0FRAN IV ONE ×2 (10:15)
[2022-04-15] MEDS ORDERED: NEOSTIGMINE (BLOXIVERZ ) 1 MG/1ML 10 ML VIAL ONE (11:22)
[2022-04-15] MEDS ORDERED: GLYCOPYRROLATE 0.2 MG/ML (ROBINUL) 2 ML VIAL ONE (11:22)
[2022-04-15] MEDS ORDERED: SUGAMMADEX 500 MG/5 ML VIAL (BRIDION) IV ONE (11:29)
--- NOTE | 2022-04-15 11:29 | Progress Note-Post Operative ---
Post-Operative Progess Note Surgeon (s)/Travel Ot (s) Surgeon CLEMENCIA LARSON DO Travel Ot: Dr. Vasquez to assist in retraction dissection and closure Pre-Operative Diagnosis cholelithiasis Post-Operative Diagnosis same, small umbilical hernia Procedure & Operative Findings Date of Procedure 04/15/22 Procedure Performed/Findings PROCEDURE: Laparoscopic cholecystectomy with intraoperative cholangiogram. COMPLICATIONS: None. PROCEDURE: The patient was taken to the operating suite and was prepped and draped in sterile fashion. A surgical pause was performed. Just superior to the umbilicus, a 12 mm incision was made. Dissection was taken down to the fascia, which was then scored and grasped with a Heavenly and the abdomen was then entered. A 0 Vicryl suture was placed in a [id number] fashion and to close hernia defect of small umbilical hernia and a Hassantrocar was placed and secured. Pneumoperitoneum was achieved. A 5mm trochar place in the subxyphoid and 2 in the right upper quadrant. The gallbladder was then grasped and elevated. The cystic duct, and cystic artery were then dissected out. Clip was placed on the distal portion of the cystic duct which was then partially transected. An arrow catheter was inserted into the duct. The cholangiogram was then performed. No filing defects and contrast made its way into the duodenum. Catheter removed. Clips were placed on proximal portion of the cystic duct and then the duct was then transected. Clips were placed along the proximal and distal portion of the cystic artery which was then transected. Hook cautery was used to dissect the gallbladder from the gallbladder fossa achieving hemostasis. The gallbladder was placed in an Endobag and removed through the 12 mm trocar site. The abdomen was then reinspected. Copious amounts of irrigation were used to irrigate the abdomen and there were no signs of active bleeding. Hemostasis had been achieved. The 12 mm fascial defect was then closed with 0 Vicryl suture that had been placed in a [id number]-wu-[id number] fashion. The abdomen was then desufflated, the trocars were removed. The abdomen was then washed and dried. The skin was then closed using 4-0 Monocryl in a subcuticular fashion. The abdomen was washed and dried and Skin Affix was place over incisions. Patient tolerated the procedure well without any complications and was taken to the recovery room in stable condition. Anesthesia Type general Estimated Blood Loss Estimated blood loss (mL): minimal Specimens/Packing Specimens Removed gallbladder CLEMENCIA LARSON DO Apr 15, 2022 11:29
[2022-04-15] MEDS ORDERED: ACHD5005 PO (11:31)
--- NOTE | 2022-04-15 11:32 | Discharge Inst-Simple/Standard ---
Discharge Inst-Standard Discharge Medications New, Converted or Re-Newed RX: Transmitted to Pharmacy Patient Instructions/Follow Up Plan of Care/Instructions/FU: 2 weeks Mckay Activity as Tolerated: No Discharge Diet: Regular Diet Other Inst to Patient Follow up Appt: Make appointment for 2 weeks. Instructions: No lifting greater than 10 pounds. No strenuous activity. May shower in 24 hours, no tub bath or soaking. Use incentive spirometer at home as directed. No Smoking Skin/Wound Care: You have special glue over incision, it will fall off on it's own. Symptoms to Report: Appetite Changes, Extremity Discoloration, Numbness/Tingling, Swelling Increased, Bleeding Excessive, Eyesight Changes, Pain Increased, Urine Color Change, Constipation(Persistent), Fever over 101 degree F, Pain/Pressure in chest, Urinating Difficulty, Cough Up/Vomit Blood, Heart Beat Irreg/Pounding, Pain/Pressure in jaw, Vaginal Bleeding Increase, Cramps in feet or legs, Lightheadedness, Pain/Pressure in shoulder, Diarrhea(Persistent), Memory Changes Suddenly, Questions/Concerns, Weight gain consecutive days, Dizziness/Fainting, Nausea/Vomiting, Shortness of Breath, Weight gain over 2 pounds. If eyes or skin turn yellow notify physician. If questions or concerns contact your physician Or seek help at emergency department. CLEMENCIA LARSON DO Apr 15, 2022 11:32
[2022-04-15] MEDS ORDERED: RT-ALBUTEROL SULF 2.5 MG/3 ML PRE-MIX VIAL ONE (11:49)
--- NOTE | 2022-04-15 11:56 | Diagnostic Imaging Report ---
INDICATION: Abdominal pain. IMPRESSION: Nine seconds of fluoroscopy and two intraoperative images were obtained by Dr. Bashir during a laparoscopic cholecystectomy. The submitted images show a cholangiogram with opacification of the common duct and contrast flowing into the duodenum. Dictated by: Dictated on workstation # [id number]
[2022-04-15] MEDS ORDERED: RT-ALBUTEROL SULF 2.5 MG/3 ML PRE-MIX VIAL INH ONE (12:00)
[2022-04-15] MEDS ORDERED: HYDROmorphone 2 MG/ML VIAL (DILAUDID) IV ONE (12:00)
[2022-04-15] MEDS ORDERED: ONDANSETRON 4 MG/2 ML (SDV) Z0FRAN IVP PRN (12:00)
[2022-04-15] MEDS ORDERED: HYDROmorphone 2 MG/ML VIAL (DILAUDID) ONE (12:24)
[2022-04-15] MEDS ORDERED: HYDROcodone/APAP 5 MG/325 MG (LORTAB) TAB ONE (13:37)
[2022-04-15] MEDS ORDERED: HYDROcodone/APAP 5 MG/325 MG (LORTAB) TAB PO ONE (13:45)
--- NOTE | 2022-04-16 06:56 | Anesthesia-General Post-Op ---
General Patient Condition Mental Status/LOC: Same as Preop Cardiovascular: Satisfactory Nausea/Vomiting: Absent Respiratory: Satisfactory Pain: Controlled Complications: Absent Post Op Complications Complications None Follow Up Care/Instructions Patient Instructions None needed. Anesthesia/Patient Condition Patient Condition Patient is doing well, no complaints, stable vital signs, no apparent adverse anesthesia problems. No complications reported per nursing. D/C home per [facility] [place], [place] Criteria: Yes CODY DELAROSA CRNA Apr 16, 2022 06:56
== END 2022-04-15 14:25 | disposition home or self-care (01) ==
LOC: SDC 07:51
PROVIDERS: ATTEND Surgery
DX: K80.10 Calculus of gallbladder with chronic cholecystitis without obstruction (principal); K42.9 Umbilical hernia without obstruction or gangrene; E66.01 Morbid (severe) obesity due to excess calories; Z68.41 Body mass index [BMI] 40.0-44.9, adult
CPT/HCPCS: 76000; 82947; 87081

== ENCOUNTER 2022-04-19 10:18 | Emergency (ER) | payer MEDICAID ==
[~2022-04-19] VITALS: Ht 157 cm; Wt 99.7 kg
[2022-04-19] MEDS ORDERED: CEPHALEXIN 250 MG (KEFLEX) CAP PO STA (11:21)
--- NOTE | 2022-04-19 11:28 | ED Integumentary General ---
General Chief Complaint: Skin/Wound Problems Stated Complaint: POST OP HERNIA AND GALLBLADDER/SWELLING/IRRITATION Nursing Triage Note: PT PRESENTS TO ED VIA POV ACCOMPANIED BY WITH COMPLAINTS OF REDNESS/ITCHING/RASH NEAR INCISION SITES AND ALONG ABDOMEN STARTING LAST NIGHT. PT REPORTS SHE HAD A GALLBLADDER AND HERNIA SX BY [facility] ON WEDNESDAY. Source: patient Exam Limitations: no limitations (SAQIB CANO) History of Present Illness Date Seen by Provider: Apr 19, 2022 Time Seen by Provider: 11:23 Initial Comments This is a 46-year-old female that presents to the emergency room for evaluation of a rash. She states that on Wednesday she had her gallbladder removed by laparoscopic means here in the hospital and last night she developed some redness around each of the port holes. She states that they are extremely itchy. She did have bandages on. There is no rash anywhere else that the patient is aware of. She has not had any increased pain, abdominal distention, vomiting or diarrhea. She did attempt to take some Benadryl which helped with the itching slightly. Timing/Duration: yesterday Possible Cause: other (Possible contact dermatitis versus infection) (SAQIB CANO) Allergies and Home Medications Allergies Coded Allergies: latex (Unverified Allergy, Severe, Rash, 04/09/22) bee venom protein (honey bee) (Unverified Allergy, Unknown, Anaphylaxis, 04/09/22) ALLERGY TO BEES/WASP, CARRIES EPIPEN tramadol (Verified Allergy, Unknown, HIVES AND VOMITING, 07/25/15) Patient Home Medication List Home Medication List Reviewed: Yes (SAQIB CANO) Cephalexin (Cephalexin) 500 Mg Tablet, 500 MG PO TID Prescribed by: Hal Cano on 04/19/22 1135 Cetirizine HCl (Zyrtec) 10 Mg Capsule, 10 MG PO DAILY, (Reported) Entered as Reported by: REGINALD EDMONDSON on 04/09/22 1314 Hydrocodone/Acetaminophen (Hydrocodone-Acetamin 5-325 mg) 5 Mg-325 Mg Tablet, 1 EACH PO Q4H PRN for PAIN-MODERATE (5-7) Prescribed by: CLEMENCIA LARSON on 04/15/22 1131 Hydroxyzine HCl (Hydroxyzine HCl) 25 Mg Tablet, 25 MG PO TID, (Reported) Entered as Reported by: REGINALD EDMONDSON on 04/09/22 1314 Lisinopril (Lisinopril) 10 Mg Tablet, 10 MG PO DAILY, (Reported) Entered as Reported by: REGINALD EDMONDSON on 04/09/22 131 Metformin HCl (Metformin HCl ER) 500 Mg Tab.er.24, 500 MG PO DAILY, (Reported) Entered as Reported by: REGINALD EDMONDSON on 04/09/22 1314 Oxybutynin Chloride (Oxybutynin Chloride ER) 10 Mg Tab.er.24, 10 MG PO DAILY, (Reported) Entered as Reported by: REGINALD EDMONDSON on 04/09/22 1314 Prednisone (Prednisone) 20 Mg Tab, 20 MG PO BID Prescribed by: Hal Cano on 04/19/22 1135 Quetiapine Fumarate (Seroquel Xr) 200 Mg Tab.er.24h, 300 MG PO DAILY, (Reported) Entered as Reported by: REGINALD EDMONDSON on 04/09/22 131 Rimegepant Sulfate (Nurtec Odt) 75 Mg Tab.rapdis, 75 MG PO PRN, (Reported) Entered as Reported by: REGINALD EDMONDSON on 04/09/22 131 Venlafaxine HCl (Effexor Xr) 37.5 Mg Cap.er.24h, 75 MG PO DAILY, (Reported) Entered as Reported by: REGINALD EDMONDSON on 04/09/221313 Review of Systems Review of Systems Constitutional: no symptoms reported EENTM: no symptoms reported Respiratory: no symptoms reported Cardiovascular: no symptoms reported Gastrointestinal: no symptoms reported Genitourinary: no symptoms reported Musculoskeletal: no symptoms reported Skin: rash (Patient has a 3 cm area of blanching erythema around each of the port sites with some slight scaling. No significant induration or abscess appreciated. No redness beyond the immediate margins of the wounds.) Hematologic/Lymphatic: No Symptoms Reported (SAQIB CANO) Past Rijhvtm-Kwobkg-Oikxka Hx Patient Social History Tobacco Use?: No Substance use?: No Alcohol Use?: No Pt feels they are or have been: No (SAQIB CANO) Immunizations Up To Date Tetanus Booster (TDap): Unknown (SAQIB CANO) Seasonal Allergies Seasonal Allergies: Yes (SAQIB CANO) Past Medical History Surgery/Hospitalization HX: pmh: htn, dm, anxiety sx: gallbladder, hyst, hernia Surgeries: Yes (DENTAL) Section, Gallbladder, Hysterectomy Respiratory: Yes Asthma Cardiac: Yes Hypertension Neurological: Yes Reproductive Disorders: Yes (PELVIC PAIN) Female Reproductive Disorders: Ovarian Cyst [employer] History: Hysterectomy, Tubal Ligation Sexually Transmitted Disease: No HIV/AIDS: No Genitourinary: Yes UTI-Chronic Gastrointestinal: Yes Gastroesophageal Reflux Musculoskeletal: Yes Arthritis, Chronic Back Pain Endocrine: No Diabetes, Non-Insulin dep HEENT: Yes (GLASSES) Loss of Vision: Bilateral Hearing Impairment: Denies Cancer: No Psychosocial: Yes (SEVERE) Anxiety Integumentary: No Blood Disorders: Yes (HX ANEMIA) Adverse Reaction/Blood Tranf: No (SAQIB CANO) Family Medical History Alcoholism 19 FATHER Cataracts 19 MOTHER Diabetes mellitus 19 FATHER Drug abuse G8 SISTER FH: breast cancer 19 MOTHER Hypertension 19 FATHER 19 MOTHER Cancer, Hypertension (SAQIB CANO) Physical Exam Vital Signs Vital Signs - First Documented 04/19/22 10:30 Temp 35.8 Pulse 83 Resp 16 B/P (MAP) 157/82 (107) Pulse Ox 96 (TEVIN PADILLA MD) Vital Signs Capillary Refill : Less Than 3 Seconds (SAQIB CANO) General Appearance: WD/WN, no apparent distress HEENT: PERRL/EOMI, normal ENT inspection, TMs normal Neck: non-tender, supple Cardiovascular: regular rate, rhythm Respiratory: chest non-tender Gastrointestinal: normal bowel sounds Back: normal inspection Extremities: non-tender, normal inspection Neurologic/Psychiatric: paper machine tender II-XII nml as tested, no motor/sensory deficits Skin: other (redness around port sites without induration or abscess) ( SAQIB CANO) Progress/Results/Core Measures Results/Orders Medications Given in ED Current Medications Medications Dose Ordered Sig/Ciro Route Start Time Stop Time Status Last Admin Dose Admin Prednisone 40 mg ONCE ONCE PO 04/19/22 11:30 04/19/22 11:31 DC 04/19/22 11:28 40 MG (TEVIN PADILLA MD) Vital Signs/I&O 04/19/22 04/19/22 10:30 11:34 Temp 35.8 Pulse 83 84 Resp 16 16 B/P (MAP) 157/82 (107) 132/78 Pulse Ox 96 98 (TEVIN PADILLA MD) Blood Pressure Mean: 107 Departure Communication (Admissions) Cellulitis vs contact dermatitis. Will treat with keflex and steroids. I discussed the importance of f/u with surgeon this week. Patient to return if worse. (SAQIB CANO) Impression Primary Impression: Allergic contact dermatitis Additional Impression: Cellulitis Disposition: 01 HOME, SELF-CARE Condition: Stable Departure-Patient Inst. Decision time for Depature: 11:27 (SAQIB CANO) Referrals: DEA CHRISTENSEN DO (PCP/Family) Primary Care Physician Patient Instructions: Skin Rash ED Add. Discharge Instructions: Follow up with your surgeon. Return if worse. All discharge instructions reviewed with patient and/or family. Voiced understanding. Scripts Prednisone (Prednisone) 20 Mg Tab 20 MG PO BID for 5 Days, #10 TAB Take 3 tabs(60mg)daily, decrease by 1/2 tab(10mg)daily. Prov: SAQIB CANO 04/19/22 Cephalexin (Cephalexin) 500 Mg Tablet 500 MG PO TID for 7 Days, #21 TAB Prov: SAQIB CANO 04/19/22 ATTENDING PHYSICIAN NOTE: I was physically present as attending physician in the emergency department during the care of this patient, but I was not directly involved in the decision making or delivery of care for this patient. (TEVIN PADILLA MD) SAQIB CANO Apr 19, 2022 11:28 TEVIN PADILLA MD Apr 19, 2022 19:33
[2022-04-19] MEDS ORDERED: CEPH500T PO ×2 (11:29→11:35)
[2022-04-19] MEDS ORDERED: PRD20T PO ×2 (11:29→11:35)
[2022-04-19] MEDS ORDERED: predniSONE 20 MG TAB PO ONE (11:30)
[2022-04-19 11:34] VITALS: BP 132/78
== END 2022-04-19 11:34 | disposition home or self-care (01) ==
LOC: EDUNIT# 10:18 → ER 10:19
DX: L23.9 Allergic contact dermatitis, unspecified cause (principal); L03.818 Cellulitis of other sites; Z91.040 Latex allergy status
CPT/HCPCS: 99283